=== PATIENT | female | born 1965 | race Caucasian/White ===

== ENCOUNTER 2018-02-12 06:50 | Day surgery (SDC) | payer MEDICARE, MEDICAID ==
[2018-02-11 14:31] LABS: BASOPHILS # (AUTO) 0.1 X10'3 (0-0.2); BASOPHILS % (AUTO) 0.8 % (0-1); EOSINOPHILS # (AUTO) 0.2 X10'3 (0-0.9); EOSINOPHILS % (AUTO) 2.2 % (0-6); LYMPHOCYTES # (AUTO) 3.1 X10'3 (1.1-4.8); LYMPHOCYTES % (AUTO) 41.6 % (21-51); MEAN CORPUSCULAR HEMOGLOBIN 32.2 PG (27.0-31.0); MEAN CORPUSCULAR HGB CONC 34.5 % (33.0-36.5); MEAN CORPUSCULAR VOLUME 93.4 FL (78-98); MEAN PLATELET VOLUME 8.4 FL (7.4-10.4); MONOCYTES # (AUTO) 0.4 X10'3 (0-0.9); NEUTROPHILS # (AUTO) 3.7 X10'3 (1.8-7.7); NEUTROPHILS % (AUTO) 50.4 % (42-75); PRE OP HEMATOCRIT 44.6 % (35.0-45.0); PRE OP HEMOGLOBIN 15.4 g/dL (12.0-16.0); PRE OP PLATELET COUNT 206 X10'3 (140-440); RED BLOOD COUNT 4.78 X10'6 (4.20-5.60); RED CELL DISTRIBUTION WIDTH 12.9 % (11.5-14.5)
[2018-02-11 14:51] LABS: ALKALINE PHOSPHATASE 116 IU/L (46-116); BLOOD UREA NITROGEN 13 MG/DL (7-18); BUN/CREATININE RATIO 12.9 (6.6-38.0); CALCIUM 9.3 MG/DL (8.5-10.1); CHLORIDE 101 MMOL/L (99-107); CREATININE 1.01 MG/DL (0.40-0.90); PRE OP ALT 54 U/L (30-65); PRE OP ANION GAP 11 (8-16); PRE OP AST 84 U/L (10-37); PRE OP GLUCOSE 163 MG/DL (70-104); PRE OP POTASSIUM 3.8 MMOL/L (3.4-5.1); PRE OP SODIUM 136 MMOL/L (135-145); TOTAL CARBON DIOXIDE 23.9 MMOL/L (24-32); TOTAL PROTEIN 8.1 G/DL (6.4-8.2); eGFR 58 ML/MIN
[2018-02-12] VITALS (8 sets, daily range): BP systolic 133–155; BP diastolic 69–100
[~2018-02-12] VITALS: Ht 162.6 cm; Wt 102.1 kg
[~2018-02-12 06:50] MED LIST: ALBU6.7H INH; CYCL-1 PO; GABA600T2 PO; HYDR-565 PO; LAMO100T89 PO; LIRA0.6P2 SQ; TRAZ-143 PO; ceFAZolin inj. 2,000 MG in dextrose 5%-water 100 ML IV ONE; famotidine 20mg tablet PO ONE; ringers solution, lacted 1,000 ML IV SCH
[2018-02-12] MEDS ORDERED: LIDOcaine 1% (10mg/ml) 2ml vial ONE (07:36)
[2018-02-12] MEDS ORDERED: ROPIVAcaine 0.5% (5mg/ml) 30ml vial ONE (09:15)
[2018-02-12] MEDS ORDERED: cloNIDine hcl/PF 100mcg/ml inj ONE (09:15)
[2018-02-12] MEDS ORDERED: BUPIVAcaine/PF 2.5 mg/ml (0.25%) 30ml vial ONE (09:32)
[2018-02-12] MEDS ORDERED: fentaNYL/PF 50MCG/1 ML 2ML syringe ONE (10:15)
[2018-02-12] MEDS ORDERED: midazolam 2 mg/2 ml injection ONE ×2 (10:16)
[2018-02-12] MEDS ORDERED: propofol inj 20 ML IV ONE (10:16)
[2018-02-12] MEDS ORDERED: sevoflurane 250ml liquid IH ONE (10:21)
[2018-02-12] MEDS ORDERED: ringers solution, lacted 1,000 ML IV SCH (11:52)
[2018-02-12] MEDS ORDERED: ondansetron/PF 4mg/2ml inj IV PRN (11:55)
[2018-02-12] MEDS ORDERED: meperidine/PF 50mg/ml syringe IV PRN ×3 (11:55)
[2018-02-12] MEDS ORDERED: morphine 4 MG/ML inj SYRINge IV PRN ×2 (11:55)
[2018-02-12] MEDS ORDERED: proCHLORperazine 10 MG/2 ml inj IV PRN (11:55)
[2018-02-12] MEDS ORDERED: LIDOcaine 1%/PF (10mg/ml) 5ml vial ONE (12:27)
[2018-02-12] MEDS ORDERED: HYDROcodone/acetaminophen 10/325mg tab PO PRN (13:10)
== END 2018-02-12 13:50 | disposition home or self-care (01) ==
LOC: PAS 06:50
PROVIDERS: ATTEND Orthopaedic Surgery
DX: M75.111 Incomplete rotator cuff tear or rupture of right shoulder, not specified as traumatic (principal); M75.21 Bicipital tendinitis, right shoulder; M25.711 Osteophyte, right shoulder; M75.51 Bursitis of right shoulder; M75.81 Other shoulder lesions, right shoulder; G47.33 Obstructive sleep apnea (adult) (pediatric); J45.909 Unspecified asthma, uncomplicated; E10.9 Type 1 diabetes mellitus without complications; E66.01 Morbid (severe) obesity due to excess calories; Z91.010 Allergy to peanuts; Z91.018 Allergy to other foods; Z91.048 Other nonmedicinal substance allergy status; Z79.891 Long term (current) use of opiate analgesic; Z87.891 Personal history of nicotine dependence; Z79.82 Long term (current) use of aspirin; Z68.38 Body mass index [BMI] 38.0-38.9, adult; Z79.899 Other long term (current) drug therapy; Z98.890 Other specified postprocedural states; Z88.8 Allergy status to other drugs, medicaments and biological substances
CPT/HCPCS: 29826; 29827; 29828; 36415; 80053; 82948; 85025; 93005; A6266; A6449; C1713; J0735; J2001; J2250; J2704; J2795; J3010; J3490; J7030; J7120; A7000; J0690; J7060

== ENCOUNTER 2018-02-12 18:07 | Emergency (ER) | payer MEDICARE, MEDICAID ==
[~2018-02-12] VITALS: Ht 162.6 cm; Wt 102.3 kg
[~2018-02-12 18:07] MED LIST changes: -ceFAZolin inj. 2,000 MG in dextrose 5%-water 100 ML IV ONE; -famotidine 20mg tablet PO ONE; -ringers solution, lacted 1,000 ML IV SCH
[2018-02-12 18:21] VITALS: BP 142/68
== END 2018-02-12 18:55 | disposition home or self-care (01) ==
LOC: ER 18:08
DX: R20.2 Paresthesia of skin (principal); Z56.0 Unemployment, unspecified; Z79.899 Other long term (current) drug therapy; Z98.890 Other specified postprocedural states
CPT/HCPCS: 64450; 99281; 99284